=== PATIENT | female | born 1975 | race Caucasian/White ===

== ENCOUNTER → 2018-02-21 14:28 | Outpatient (CLI) | payer OTHER, SELFPAY ==
[2018-02-23 19:22] LABS: Thyroid Peroxidase Antibodies 24 IU/mL (0-34)
[2018-02-25 17:28] LABS: Thyroid Stimulating Immunoglob <0.10 IU/L (0.00-0.55)
== END ==
PROVIDERS: Visit Provider Otolaryngology
DX: E05.90 Thyrotoxicosis, unspecified without thyrotoxic crisis or storm (principal)
CPT/HCPCS: 36415; 83520; 86376

== ENCOUNTER → 2018-03-07 08:46 | Outpatient (CLI) | payer OTHER, SELFPAY ==
[2018-03-07 13:51] LABS: Free T4 (Free Thyroxine) 1.24 ng/dl (0.76-1.46); Thyroid Stimulating Hormone 0.01 uIU/ml (0.358-3.740)
[2018-03-09 13:33] LABS: Triiodothyronine (T3) Free 3.5 pg/mL (2.0-4.4)
== END ==
PROVIDERS: Visit Provider Otolaryngology
DX: E05.90 Thyrotoxicosis, unspecified without thyrotoxic crisis or storm (principal)
CPT/HCPCS: 36415; 84439; 84443; 84481

== ENCOUNTER → 2018-04-04 07:31 | Outpatient (CLI) | payer OTHER, SELFPAY ==
[2018-04-04 08:03] LABS: Basophils # 0.1 K/mm3 (0-0.2); Basophils % 0.8 % (0.1-2.0); Eosinophils # 0.2 K/mm3 (0.0-0.4); Eosinophils % 2.5 % (0.1-12.0); Hematocrit 41.4 % (37.0-47.0); Hemoglobin 13.3 g/dL (12.2-16.2); Lymphocytes # 1.9 K/mm3 (0.7-4.5); Lymphocytes % 25.5 K/mm3 (10-50); Mean Corpuscular HGB Conc 32.2 g/dL (31.8-35.4); Mean Corpuscular Hemoglobin 27.8 pg (27.0-31.2); Mean Corpuscular Volume 86.2 fl (81-99); Mean Platelet Volume 7.2 fl (7.4-10.4); Monocytes # 0.5 K/mm3 (0.1-1.0); Monocytes % 6.7 % (1.7-9.3); Neutrophils # 4.7 K/mm3 (1.8-7.8); Neutrophils % 64.4 % (37.0-80.0); Platelet Count 303 K/mm3 (142-424); Red Cell Distribution Width 14.7 % (11.5-17.5); White Blood Count 7.2 K/mm3 (4.8-10.8)
== END ==
PROVIDERS: PCP Physician Assistant; Visit Provider Otolaryngology
DX: Z01.818 Encounter for other preprocedural examination (principal); E07.9 Disorder of thyroid, unspecified; E05.00 Thyrotoxicosis with diffuse goiter without thyrotoxic crisis or storm
CPT/HCPCS: 36415; 85025; 93005

== ENCOUNTER → 2018-05-09 07:47 | Outpatient (CLI) | payer OTHER, SELFPAY ==
[2018-05-09 13:53] LABS: Free T4 (Free Thyroxine) 0.68 ng/dl (0.76-1.46); Thyroid Stimulating Hormone 19.05 uIU/ml (0.358-3.740)
== END ==
PROVIDERS: Visit Provider Otolaryngology
DX: E89.0 Postprocedural hypothyroidism (principal)
CPT/HCPCS: 36415; 84439; 84443

== ENCOUNTER → 2018-06-06 07:47 | Outpatient (CLI) | payer OTHER, SELFPAY ==
[2018-06-06 13:55] LABS: Calcium 8.7 mg/dL (8.5-10.1); Free T4 (Free Thyroxine) 0.82 ng/dl (0.76-1.46); Thyroid Stimulating Hormone 12.25 uIU/ml (0.358-3.740)
== END ==
PROVIDERS: PCP Physician Assistant; Visit Provider Otolaryngology
DX: E03.9 Hypothyroidism, unspecified (principal); Z98.890 Other specified postprocedural states
CPT/HCPCS: 36415; 82310; 84439; 84443

== ENCOUNTER → 2018-06-27 07:57 | Outpatient (CLI) | payer OTHER, SELFPAY ==
[2018-06-27 14:07] LABS: Free T4 (Free Thyroxine) 1.01 ng/dl (0.76-1.46)
== END ==
PROVIDERS: PCP Physician Assistant; Visit Provider Otolaryngology
DX: D49.7 Neoplasm of unspecified behavior of endocrine glands and other parts of nervous system (principal); E03.9 Hypothyroidism, unspecified
CPT/HCPCS: 36415; 84439; 84443

== ENCOUNTER → 2019-03-08 08:20 | Outpatient (CLI) | payer OTHER, SELFPAY ==
[2019-03-08 14:53] LABS: Free T4 (Free Thyroxine) 1.15 ng/dl (0.76-1.46); Thyroid Stimulating Hormone 2.63 uIU/ml (0.358-3.740)
== END ==
PROVIDERS: PCP Physician Assistant; Visit Provider Otolaryngology
DX: Z09 Encounter for follow-up examination after completed treatment for conditions other than malignant neoplasm (principal)
CPT/HCPCS: 36415; 84439; 84443

== ENCOUNTER → 2019-09-04 07:59 | Outpatient (CLI) | payer OTHER, SELFPAY ==
[2019-09-04 13:46] LABS: Free T4 (Free Thyroxine) 1.26 ng/dl (0.76-1.46); Thyroid Stimulating Hormone 2.04 uIU/ml (0.358-3.740)
== END ==
PROVIDERS: PCP Physician Assistant; Visit Provider Otolaryngology
DX: E03.9 Hypothyroidism, unspecified (principal); D49.7 Neoplasm of unspecified behavior of endocrine glands and other parts of nervous system
CPT/HCPCS: 36415; 84439; 84443

== ENCOUNTER → 2020-03-03 12:17 | Outpatient (CLI) | payer OTHER, SELFPAY ==
--- NOTE | 2020-03-03 12:34 | US_ITS ---
PROCEDURE: US THYROID CLINICAL INDICATION: hx of thyroidectomy, right lobe 2 years ago COMPARISON: No exams were available for comparison FINDINGS: Right lobe: Surgically absent Left lobe: Borderline enlarged but showing normal homogeneous echogenicity with no cystic or solid nodules noted. Isthmus: Unremarkable Additional findings: IMPRESSION: Post right thyroid lobectomy, grossly normal appearing left lobe and isthmus Dictated by: Dr. Edward Rico MD 03/03/2020 13:[address] Edward Rico MD in [place] 03/03/2020 13:53
[2020-03-03 13:43] LABS: Free T4 (Free Thyroxine) 1.33 ng/dl (0.78-2.19)
[2020-03-03 13:58] LABS: Thyroid Stimulating Hormone 3.52 uIU/mL (0.465-4.68)
== END ==
PROVIDERS: PCP Physician Assistant; Visit Provider Otolaryngology
DX: D49.7 Neoplasm of unspecified behavior of endocrine glands and other parts of nervous system (principal); E03.9 Hypothyroidism, unspecified
CPT/HCPCS: 36415; 76536; 84439; 84443

== ENCOUNTER → 2020-12-21 13:58 | Outpatient (CLI) | payer OTHER, SELFPAY | PROVIDERS: PCP Physician Assistant; Visit Provider Nurse Practitioner Family | DX: Z20.822 Contact with and (suspected) exposure to COVID-19 (principal) | CPT/HCPCS: U0003 ==

== ENCOUNTER 2021-01-27 13:01 | Observation (INO) | payer OTHER, SELFPAY ==
[2021-01-27] VITALS (11 sets, daily range): BP systolic 85–136; BP diastolic 52–88; PULSE 55–185; RESP 16–22; TEMP 36.6; O2SAT 96–100; BMI 35.5; BMI 35.2
--- NOTE | 2021-01-27 12:55 | ECG_ITS ---
APPROVED REPORT Exam: Resting ECG HR:201 bpm ECG Measurements Heart Rate 201 AXES AK 120 P QRSd 66 QRS 50 QT 224 T -14 QTc [address] & T wave abnormality, consider inferior ischemia versus rate affect Abnormal ECG Electronically signed by : Igor Man, 01/27/2021 16:55:41
--- NOTE | 2021-01-27 13:06 | ECG_ITS ---
APPROVED REPORT Exam: Resting ECG HR:97 bpm ECG Measurements Heart Rate 97 AXES AR 126 P 53 QRSd 74 QRS 32 QT 340 T 34 QTc 431 Conclusion Normal sinus rhythm Normal ECG Electronically signed by : Igor Man, 01/27/2021 16:55:24
--- NOTE | 2021-01-27 13:08 | XR_ITS ---
PROCEDURE: XR CHEST PORTABLE CLINICAL HISTORY: svt COMPARISON: No exams were available for comparison FINDINGS: The cardiomediastinal silhouette and pulmonary vascularity are within normal limits. There is an overlying monitor device in the midthoracic region obscuring fine detail of the mid mediastinal area and elroy. The lungs are clear. No acute bony abnormalities. IMPRESSION: No acute findings. Dictated by: Pito Goddard MD 01/27/2021 13:32 Pito Goddard MD in [place] 01/27/2021 13:32
--- NOTE | 2021-01-27 13:14 | HMH.EDGENADL ---
ED Disposition Clinical Impression: Supraventricular tachycardia, Elevated troponin, Left upper limb pain Disposition: Admitted as Observation Condition on Discharge: Good Additional Instructions: See Dr. Foster in her office on 02/08/2021 at 2 PM. Return to the emergency department if symptoms return. Referrals: Cass Ely [Primary Care Provider] - - Critical Care Critical Care Time: No Attestation: On 01/27/21, the high probability of a clinically significant, sudden or life threatening deterioration of the following system(s) required my full and direct attention, intervention and personal management. The time I documented below is in addition to time spent performing reported procedures but includes the following listed in this critical care notation. Medical Decision Making - Pranay Inquiry Pt receiving controlled substance: No Vital Signs: 01/27/21 13:02 01/27/21 14:00 01/27/21 14:20 Temperature 98 F Temperature Source Oral Pulse Rate 95 H 55 L Pulse Rate [Radial] 185 H Respiratory Rate 22 18 16 Blood Pressure 126/83 134/59 L Blood Pressure [Right Arm] 85/54 L Blood Pressure Mean 94 72 Blood Pressure Mean [Right Arm] 64 Blood Pressure Position [Right Arm] Sitting 02 Sat by Pulse Oximetry 98 96 100 01/27/21 14:50 01/27/21 15:20 01/27/21 16:01 Temperature Temperature Source Pulse Rate 57 L 70 88 Pulse Rate [Radial] Respiratory Rate 16 16 18 Blood Pressure 120/52 L 107/60 L 118/88 Blood Pressure [Right Arm] Blood Pressure Mean 92 70 96 Blood Pressure Mean [Right Arm] Blood Pressure Position [Right Arm] 02 Sat by Pulse Oximetry 97 100 01/27/21 16:30 01/27/21 18:00 Temperature Temperature Source Pulse Rate 94 H 100 H Pulse Rate [Radial] Respiratory Rate 16 18 Blood Pressure 133/70 136/88 Blood Pressure [Right Arm] Blood Pressure Mean 106 103 Blood Pressure Mean [Right Arm] Blood Pressure Position [Right Arm] 02 Sat by Pulse Oximetry 100 98 - Lab Data Lab Results 01/27/21 14:00: WBC 8.9, RBC 4.55, Hgb 13.3, Hct 40.9, MCV 89.9, MCH 29.2, MCHC 32.5, RDW 13.9, Plt Count 312, MPV 7.5, Neut % (Auto) 70.5, Lymph % (Auto) 22.2, [place] % (Auto) 5.4, Eos % (Auto) 1.0, Baso % (Auto) 0.8, Neut # (Auto) 6.3, Lymph # (Auto) 2.0, [place] # (Auto) 0.5, Eos # (Auto) 0.1, Baso # (Auto) 0.1 01/27/21 14:00: Sodium 136, Potassium 4.0, Chloride 111 H, Carbon Dioxide 19 L, Anion Gap 10.0, BUN 14, Creatinine 0.70, Estimated Creat Clear 162, Estimated GFR 91, Est GFR ( Amer) 110, Glucose 92, Calcium 8.7, Magnesium 1.8, Troponin I 0.01 01/27/21 14:00: TSH 3.22, Free T4 Index 3.4 L, Thyroxine (T4) 10.6, T3 Uptake 32 01/27/21 17:14: Troponin I 0.16 H Result diagrams: 01/27/21 14:00 01/27/21 14:00 Orders (Tests/Meds): ED MEDICATIONS Generic Name Dose Route Start Last Admin Trade Name Freq PRN Reason Stop Dose Admin Metoprolol Tartrate 50 mg 01/27/21 21:00 Metoprolol Tartrate 50mg Tablet PO 02/26/21 20:59 BID NOAH Discontinued Medications Generic Name Dose Route Start Last Admin Trade Name Freq PRN Reason Stop Dose Admin Adenosine 6 mg 01/27/21 13:17 01/27/21 13:17 Adenosine 6mg/2ml Vial IV 01/27/21 13:18 6 mg ONCE ONE Administration Aspirin 324 mg 01/27/21 18:13 01/27/21 18:14 Aspirin 81mg Chewable Tablet PO 01/27/21 18:14 324 mg ONCE ONE Administration Clopidogrel Bisulfate 300 mg 01/27/21 18:23 Clopidogrel 300mg Tablet PO 01/27/21 18:24 ONCE ONE ORDERS Category Date Time Status Troponin I Q3H Lab 01/27/21 14:00 Ordered - Radiology Data #1 Image(s): Chest Image Reviewed: Yes I have reviewed radiologist's interpretation PROCEDURE: XR CHEST PORTABLE CLINICAL HISTORY: svt COMPARISON: No exams were available for comparison FINDINGS: The cardiomediastinal silhouette and pulmonary vascularity are within normal limits. There is an overlying monitor
--- NOTE | 2021-01-27 13:23 | PC.NURSE ---
Rad at bedside
[2021-01-27 14:22] LABS: Chloride 111 mmol/L (98-107)
[2021-01-27 14:23] LABS: Sodium 136 mmol/L (136-145)
[2021-01-27 14:25] LABS: Blood Urea Nitrogen 14 mg/dl (7-17); Creatinine Clearance Estimated 162 mL/min (50-200); Estimated Glomerular Filt Rate 91 ml/min (>60); GFR (African American) 110 ML/MIN (>60)
[2021-01-27 14:26] LABS: Basophils # 0.1 K/mm3 (0-0.2); Basophils % 0.8 % (0.1-2.0); Calcium 8.7 mg/dl (8.4-10.2); Carbon Dioxide 19 mmol/L (22.0-30.0); Eosinophils # 0.1 K/mm3 (0.0-0.4); Glucose 92 mg/dl (74-100); Hematocrit 40.9 % (37.0-47.0); Hemoglobin 13.3 g/dL (12.2-16.2); Lymphocytes % 22.2 % (10-50); Magnesium 1.8 mg/dl (1.6-2.3); Mean Corpuscular HGB Conc 32.5 g/dL (31.8-35.4); Mean Corpuscular Hemoglobin 29.2 pg (27.0-31.2); Mean Corpuscular Volume 89.9 fl (81-99); Mean Platelet Volume 7.5 fl (7.4-10.4); Monocytes # 0.5 K/mm3 (0.1-1.0); Monocytes % 5.4 % (1.7-9.3); Neutrophils # 6.3 K/mm3 (1.8-7.8); Neutrophils % 70.5 % (37.0-80.0); Platelet Count 312 K/mm3 (142-424); Red Blood Count 4.55 M/mm3 (4.20-5.40); Red Cell Distribution Width 13.9 % (11.5-17.5); White Blood Count 8.9 K/mm3 (4.8-10.8)
[2021-01-27 14:40] LABS: Troponin I 0.01 ng/ml (0.00-0.034)
[2021-01-27 14:44] LABS: Free Thyroxine Index 3.4 ug/dL (5.93-13.13); T4 (Thyroxine) 10.6 ug/dl (5.53-11.0); Triiodothryronine (T3) Uptake 32 % (23.5-40.5)
[2021-01-27 14:58] LABS: Thyroid Stimulating Hormone 3.22 uIU/mL (0.465-4.68)
--- NOTE | 2021-01-27 15:59 | PC.NURSE ---
Dr. Lea paged.
--- NOTE | 2021-01-27 16:33 | PC.NURSE ---
Dr franz speaking with Dr Leonora yarbrough ruby rails developer.
[2021-01-27 17:42] LABS: Troponin I 0.16 ng/ml (0.00-0.034)
--- NOTE | 2021-01-27 17:57 | PC.NURSE ---
Dr Lamb paged
--- NOTE | 2021-01-27 18:16 | PC.NURSE ---
Dr Lamb paged again.
[2021-01-27 18:40] LABS: Adenovirus,PCR Not Detected (NotDetected); Bordetella Pertussis Not Detected (NotDetected); Chlamydophila Pneumoniae, PCR Not Detected (NotDetected); Coronavirus 19, PCR Not Detected (NotDetected); Coronavirus 229E Not Detected (NotDetected); Coronavirus NL63 Not Detected (NotDetected); Coronavirus OC43 Not Detected (NotDetected); Coronovirus HKU1,PCR Not Detected (NotDetected); Human Metapneumovirus Not Detected (NotDetected); Influenza A, PCR Not Detected (NotDetected); Influenza AH1, 2009 Not Detected (NotDetected); Influenza AH1, PCR Not Detected (NotDetected); Influenza AH3,PCR Not Detected (NotDetected); Influenza B, PCR Not Detected (NotDetected); Mycoplasma Pneumoniae, PCR Not Detected (NotDetected); Parainfluenza 1, PCR Not Detected (NotDetected); Parainfluenza 2, PCR Not Detected (NotDetected); Parainfluenza 3, PCR Not Detected (NotDetected); Parainfluenza 4, PCR Not Detected (NotDetected); Respiratory Syncytial Virus Not Detected (NotDetected); Rhinovirus/Enterovirus Not Detected (NotDetected)
[2021-01-27 20:03] LABS: Troponin I 0.15 ng/ml (0.00-0.034)
--- NOTE | 2021-01-27 20:41 | PC.NURSE ---
PT ARRIVED TO [facility] VIA W/C GILBERT PERKINS W/STAFF AT 2041
[2021-01-28] VITALS (18 sets, daily range): BP systolic 82–161; BP diastolic 52–72; PULSE 59–81; RESP 16–20; TEMP 36.6–36.8; O2SAT 93–98; BMI 35.4
--- NOTE | 2021-01-28 | IR_ITS ---
APPROVED REPORT Patient Location: Inpatient Bus Inspector: CALLIE Schmitz RT (R) PROCEDURES Left heart catheterization Left ventriculogram Selective coronary angiogram INDICATION Non-ST elevation myocardial infarction, Risk factors for coronary disease, Supraventricular tachycardia SCAI INDICATION 45-year-old diabetic patient presenting to the emergency department with supraventricular tachycardia accompanied by chest pain. Patient received adenosine and converted to sinus rhythm. Despite the conversion to sinus rhythm patient had persistent intermittent waxing and waning left arm pain which was suspicious for angina pectoris. Patient had a significant ten fold increase in troponin from baseline at 2 hours therefore she was admitted for ongoing monitoring. Given patient's troponin elevation in the setting of an SVT along with her risk factors it was decided we should proceed with angiography. Informed consent was obtained prior to the procedure. COMPLICATIONS None Estimated Blood Loss: less than 10 ml TECHNIQUE One percent lidocaine used to anesthetize the right anterior aspect of the wrist. The right radial artery was accessed via the Seldinger technique. A 6 Armenian sheath was placed in the right radial artery. 2.5 mg of verapamil, 800 mcg of nitroglycerin, 1mg Lidocaine and 5000 U Heparin were given through the arterial sheath. The Poppa catheter was also used to perform left heart catheterization, left ventriculogram and selective coronary angiogram. At the end of the procedure the sheath was removed good hemostasis was achieved using Traclet band, patient was transferred to the postop holding area in stable condition. ANGIOGRAPHIC RESULTS The left main artery Normal The left anterior descending artery Normal with slow ARELY II flow down the higher vessel consistent with endothelial dysfunction The circumflex artery Nondominant normal The right coronary artery Large dominant normal The LIZ ventriculogram reveals Slightly hyperdynamic at 70% The left ventricular end-diastolic pressure Mildly elevated 20 mmHg IMPRESSION Angiographically normal coronary arteries accompanied by ARELY II flow down the LAD consistent with significant endothelial dysfunction Hyperdynamic ventricle consistent with diastolic dysfunction Mildly elevated LVEDP also consistent with diastolic dysfunction PLAN 1. Medical management for SVT 2. Patient should be referred to electrophysiology for EP study with planned radiofrequency ablation given her type II myocardial infarction during SVT 3. Continue beta-blockers for SVT Electronically signed by : Pj Lamb, 01/28/2021 11:40:28
[2021-01-28 00:01] LABS: POC Glucose,Bedside 85 (70-110)
--- NOTE | 2021-01-28 02:57 | PC.NURSE ---
Pt A&O x4 and has slept well this shift. Pt independent with ambulation in room. NSR on tele. Lungs CTA, on room air. Bowels soudns x4, abd soft and nontender. IV patent, SL. VSS, call light in reach, no concerns at this time.
--- NOTE | 2021-01-28 06:33 | PC.NURSE ---
Girish AGUIRRE NOTIFIED OF CONSULT
--- NOTE | 2021-01-28 07:59 | P.CONPHA_ITS ---
[facility] Pharmacy VTE Monitoring - Patient Demographics Admission date: 01/27/21 Report Date: 01/28/21 Time: 07:59 Allergies/Adverse Reactions: Patient Allergies Opioids - Morphine Analogues Allergy (Intermediate, Verified 12/21/20 13:02) Penicillins Allergy (Intermediate, Verified 12/21/20 13:02) Height: 1.68 m Weight: 99.819 kg Patient Problems: Current Active Problems Supraventricular tachycardia (Acute) Elevated troponin (Acute) Left upper limb pain (Acute) - VTE Risk Labs: VTE Related Lab Results Hgb 13.3 g/dL (12.2-16.2) 01/27/21 14:00 Hct 40.9 % (37.0-47.0) 01/27/21 14:00 Plt Count 312 K/mm3 (142-424) 01/27/21 14:00 BUN 14 mg/dl (7-17) 01/27/21 14:00 Creatinine 0.70 mg/dl (0.52-1.04) 01/27/21 14:00 Estimated Creat Clear 162 mL/min (50-200) 01/27/21 14:00 VTE Score: 2 VTE Risk Level: Very Low Risk - Prophylaxis VTE Prophylaxis Ordered?: Yes Types of VTE Prophylaxis: TEDS Knee High Location of Applied Device: Bilateral Lower Extremeties
--- NOTE | 2021-01-28 08:00 | HMH.HP ---
*Admission Date: 01/27/21 *Chief complaint: Tachycardia/presyncope *History of present illness: 45-year-old white female with hypertension, moderate obesity but with negative heart history in the past who was at her workplace yesterday when she felt a feeling of presyncope for an hour or 2. Presented to the emergency department where she was found to be in SVT which she noticed when she laid back in the ER bed. She was treated with adenosine which broke the SVT back to sinus rhythm. Work-up revealed negative chest x-ray, labs were unremarkable until her second troponin was very minimally elevated. She was admitted to hospital overnight for serial troponins and further evaluation. This morning she feels great, and has had no further issues with tachycardia, presyncope or palpitations. She notes that 4 days ago she had a fall after she had been doing a lot of mulch at her home and had some left shoulder pain, this has not resolved or changed with her heart rate or the resolution of the SVT is noted. [facility] History I have reviewed the patient's past medical history: Yes Medical History: Reports:: Depression, Hyperlipidemia, Hypertension, Migraine Denies:: Diabetes Mellitus Type 1, Diabetes Mellitus Type 2 *Have you ever received a pneumonia vaccine?: No *Have you received a flu vaccine this season?: Yes Other Medical History: Reports: Hypothyroidism, Thyroid Disease, Other Laterality Cases: Bilateral: Other Other Surgeries: Yes: No Previous Surgery, (x3), Thyroidectomy - *Social History Last grade of school completed: Some college Smoking Status: Never smoker Alcohol Intake: current Alcohol Intake Frequency:: holidays/special occasions only Substance Use Type: denies use *Occupational Status:: employed Housing: house Household Members: family *Travel in the last 8 weeks: None - Psychiatric History Pschychiatric History:: Reports:: Depression Family Hx:: Cancer, Hypertension Review of Systems - Review of Systems Review of systems:: pertinent systems reviewed and negative unless documented below - *Neurologic Denies fainting Meds Home Medications Medication Instructions Recorded Confirmed Type diclofenac potassium 50 mg tablet 50 mg PO DAILY 30 Days #60 02/21/01/27/21 History metformin 500 mg tablet,extended 500 mg PO DAILY #23 tab 09/06/19 01/27/21 History release 24 hr olmesartan 20 mg tablet 20 mg PO DAILY #30 tab 09/06/19 01/27/21 History sertraline 100 mg tablet 100 mg PO DAILY #30 tab 09/06/19 01/27/21 History Levothyroxine Sodium [Tirosint] 100 mcg PO DAILY 01/27/21 01/27/21 History Allergies Allergy/AdvReac Type Severity Reaction Status Date / Time Opioids - Morphine Analogues Allergy Intermediate Verified 12/21/20 13:02 Penicillins Allergy Intermediate Verified 12/21/20 13:02 Exam Vital signs and Labs for Last 24 Hours: Temp Pulse Resp BP Pulse Ox 98 F 65 20 111/64 97 01/28/21 04:00 01/28/21 04:00 01/28/21 04:00 01/28/21 04:00 01/28/21 04:00 Laboratory Results - last 24 hr 01/27/21 14:00: WBC 8.9, RBC 4.55, Hgb 13.3, Hct 40.9, MCV 89.9, MCH 29.2, MCHC 32.5, RDW 13.9, Plt Count 312, MPV 7.5, Neut % (Auto) 70.5, Lymph % (Auto) 22.2, [place] % (Auto) 5.4, Eos % (Auto) 1.0, Baso % (Auto) 0.8, Neut # (Auto) 6.3, Lymph # (Auto) 2.0, [place] # (Auto) 0.5, Eos # (Auto) 0.1, Baso # (Auto) 0.1 01/27/21 14:00: Sodium 136, Potassium 4.0, Chloride 111 H, Carbon Dioxide 19 L, Anion Gap 10.0, BUN 14, Creatinine 0.70, Estimated Creat Clear 162, Estimated GFR 91, Est GFR ( Amer) 110, Glucose 92, Calcium 8.7, Magnesium 1.8, Troponin I 0.01 01/27/21 14:00: TSH 3.22, Free T4 Index 3.4 L, Thyroxine (T4) 10.6, T3 Uptake 32 01/27/21 17:14: Troponin I 0.16 H 01/27/21 18:34: Chlamy pneumoniae PCR Not detected, Adenovirus (PCR) Not detected, B. pertussis DNA (PCR) Not detected, Coronavirus OC43 (PCR) Not detected, Coronavirus HKU1 (PCR) Not detected, Coronavirus 229E (PCR) Not detected, SARS-CoV-2 (P
--- NOTE | 2021-01-28 09:01 | HMH.PHAINT ---
home medicaiton list clarified using list from home pharmacy and pt interview
--- NOTE | 2021-01-28 10:00 | HMH.CNCARD ---
History of Present Illness Consult date: 01/28/21 Requesting physician: Igor Man Consult reason: chest pain Chief complaint: Chest pain, SVT Additional Medical History:: 1. Hypertension 2. Partial thyroidectomy secondary to Graves' disease 3. Family history of coronary disease in her father 4. Hyperlipidemia, on statin therapy 5. Polycystic ovarian syndrome, on Metformin 6. Obesity History of present illness: 45-year-old white female with hypertension, moderate obesity but with negative heart history in the past who was at her workplace yesterday when she felt a feeling of presyncope for an hour or 2. Presented to the emergency department where she was found to be in SVT which she noticed when she laid back in the ER bed. She was treated with adenosine which broke the SVT back to sinus rhythm. Work-up revealed negative chest x-ray, labs were unremarkable until her second troponin was very minimally elevated. She was admitted to hospital overnight for serial troponins and further evaluation. This morning she feels great, and has had no further issues with tachycardia, presyncope or palpitations. She notes that 4 days ago she had a fall after she had been doing a lot of mulch at her home and had some left shoulder pain, this has not resolved or changed with her heart rate or the resolution of the SVT is noted. The above per Dr. Man Events as noted above confirmed with the patient. No prior episodes of presyncope. She reports having a stress test by Dr. Foster in June of last year walking 9 minutes on a treadmill with reportedly no concerning changes. Patient denies any exertional chest pain, pressure or tightness but admits that she is not very active. Troponins, normal x3 overnight. EKG is sinus rhythm no acute ST segment changes. [facility] History Medical History: Reports:: Depression, Hyperlipidemia, Hypertension, Migraine Denies:: Diabetes Mellitus Type 1, Diabetes Mellitus Type 2 *Have you ever received a pneumonia vaccine?: No *Have you received a flu vaccine this season?: Yes Other Medical History: Reports: Hypothyroidism, Thyroid Disease, Other Laterality Cases: Bilateral: Other Other Surgeries: Yes: No Previous Surgery, (x3), Thyroidectomy - *Social History Last grade of school completed: Some college Smoking Status: Never smoker Alcohol Intake: current Alcohol Intake Frequency:: holidays/special occasions only Substance Use Type: denies use *Occupational Status:: employed Housing: house Household Members: family *Travel in the last 8 weeks: None - Psychiatric History Pschychiatric History:: Reports:: Depression Family Hx:: Cancer, Hypertension Meds Home Medications Medication Instructions Recorded Confirmed Type metformin 500 mg tablet,extended 500 mg PO DAILY #23 tab 09/06/19 01/27/21 History release 24 hr olmesartan 20 mg tablet 20 mg PO DAILY #30 tab 09/06/19 01/27/21 History sertraline 100 mg tablet 100 mg PO HS #30 tab 09/06/19 01/28/21 History Levothyroxine Sodium [Tirosint] 100 mcg PO DAILY 01/27/21 01/27/21 History Diclofenac Sodium [Diclofenac 75mg 75 mg PO BID 01/28/21 01/28/21 History Tab] Allergies Allergy/AdvReac Type Severity Reaction Status Date / Time Opioids - Morphine Analogues Allergy Intermediate Verified 12/21/20 13:02 Penicillins Allergy Intermediate Verified 12/21/20 13:02 Exam Vital signs and Labs for Last 24 Hours: Temp Pulse Resp BP Pulse Ox 98.1 F 81 19 161/72 H 97 01/28/21 08:00 01/28/21 08:00 01/28/21 08:00 01/28/21 08:00 01/28/21 08:00 Laboratory Results - last 24 hr 01/27/21 14:00: WBC 8.9, RBC 4.55, Hgb 13.3, Hct 40.9, MCV 89.9, MCH 29.2, MCHC 32.5, RDW 13.9, Plt Count 312, MPV 7.5, Neut % (Auto) 70.5, Lymph % (Auto) 22.2, [place] % (Auto) 5.4, Eos % (Auto) 1.0, Baso % (Auto) 0.8, Neut # (Auto) 6.3, Lymph # (Auto) 2.0, [place] # (Auto) 0.5, Eos # (Auto) 0.1, Baso # (Auto) 0.1 01/27/21 14:00: Sodium 136, Pota
--- NOTE | 2021-01-28 10:08 | CA_ITS ---
APPROVED REPORT EXAM: Comprehensive 2D, Doppler, and color-flow Echocardiogram Physics Technical Officer: Aida Eastman RT(R) Ht: 5 ft 6 in Wt: 220lbs BSA: 2.08 HR: 70 bpm BP: 114/70 mmHg Indications: Palpitations, Atypical CP, SVT, elevated troponin, Family hx-ASCVD 2D Dimensions IVSd 0.91 cm LVEF (Visual) 57.20 % PWd 0.90 cm LA Volume 40.90 mL LVDd 4.70 cm LA Volume Index 19.727323 mL/m2 (M/F) 16-34 LVDs 3.29 cm Aortic Root 2.92 cm Left Atrium 3.78 cm LVOT 1.99 cm (M/F) 1.5-2.5 M-Mode Dimensions RVDd 1.29 cm (0.9-2.6) LA Diam 3.34 cm (1.9-4.0) LVDd 4.58 cm (3.5-5.7) Ao Diam 3.21 cm (2.0-3.7) LVDs 3.17 cm (3.5-5.7) IVSd 0.94 cm (0.6-1.1) PWd 1.16 cm (0.6-1.1) EF (Teich) 58.50% EPSs 0.39 cm FS 30.80% EDV (Teich) 96.30 mL TAPSE 2.30 (<1.7) ESV (Teich) 40.00 mL LV Diastology E Decel Time 157.00 (160-240 msec) E/A Ratio 1.12 MED E' 13.80 (< 7 cm/sec) MED A' 12.10 cm/s E'/MED E' Ratio 5.04 (>14) LAT E' 10.50 (<10 cm/sec) LAT A' 6.10 cm/s E/LAT E' Ratio 6.62 (>14) Aortic Valve LVOT Max 97.00 (70-110 cm/s) LVOT VTI 21.97 cm AoV Peak Darci. 135.00 (50-130 cm/s) AO Peak GR. 7.30 mmHg AO Mean GR. 4.80 (<5 mmHg) AO VTI 30.99 (18-25 cm) CHRISTI (VTI) 2.20 (2.5-4.5 cm2) Mitral Valve MV E Max Darci. 69.00 (40-130 cm/s) MV A Velocity 62.00 (40-130 cm/s) E/A Ratio 1.12 MV Decel. Time 157.00 (160-240 ms) MV PHT 46.00 ms Pulmonary Valve PV Peak Velocity 65.00 (50-150 cm/s) Tricuspid Valve TR P. Velocity 239.00 cm/s RAP Estimate 10.00 mmHg RVSP 32.90 mmHg Left Ventricle Left atrium is normal size, left ventricle is normal size, there is no concentric left ventricular hypertrophy, visually estimated ejection fraction 55% with no regional wall motion abnormality, diastolic parameters are within normal range. Right Ventricle Right atrium and right ventricle are normal size and contractility. Aortic Valve Aortic valve is grossly normal, there is no aortic stenosis or aortic insufficiency. Mitral Valve Mitral valve grossly normal, there is trace mitral regurgitation. Tricuspid Valve Tricuspid valve is grossly normal, there is trace tricuspid regurgitation. Tricuspid regurgitation jet velocity is inadequate for calculation of the right ventricular systolic pressure. Pulmonic Valve Pulmonic valve is poorly visualized. Great Vessels Aortic root is normal size. Pericardium No significant pericardial effusion noted. Conclusion 1. Normal left ventricular size, preserved left ventricular systolic function, visually estimated ejection fraction 55% with no regional wall motion abnormality, diastolic parameters are within normal range. 2. Trace mitral and tricuspid regurgitation. 3. No significant pericardial effusion noted. Electronically signed by : Sheldon Edwards, 01/28/2021 17:08:03
[2021-01-28 10:41] LABS: HCG Qualitative, Serum Negative (Negative)
--- NOTE | 2021-01-28 11:00 | PC.NURSE ---
down for heart cath now
--- NOTE | 2021-01-28 12:28 | PC.NURSE ---
patient returned from heart cath in stable condition.
--- NOTE | 2021-01-28 14:51 | HMH.DCSUM ---
General - General Admission date:: 01/27/21 Discharge date: 01/28/21 HPI HPI: 45-year-old white female with hypertension, moderate obesity but with negative heart history in the past who was at her workplace yesterday when she felt a feeling of presyncope for an hour or 2. Presented to the emergency department where she was found to be in SVT which she noticed when she laid back in the ER bed. She was treated with adenosine which broke the SVT back to sinus rhythm. Work-up revealed negative chest x-ray, labs were unremarkable until her second troponin was very minimally elevated. She was admitted to hospital overnight for serial troponins and further evaluation. This morning she feels great, and has had no further issues with tachycardia, presyncope or palpitations. She notes that 4 days ago she had a fall after she had been doing a lot of mulch at her home and had some left shoulder pain, this has not resolved or changed with her heart rate or the resolution of the SVT is noted. Hospital Course Hospital Course: Patient admitted, started on metoprolol and cardiology was consulted with recommendation for LHC. Patient was taken for LHC which showed normal coronaries, hyperdynamic function and endothelial dysfunction of LAD. Recommendation for EP referral for ablation of SVT due to type II NSTEMI. She has tolerated metoprolol well. No further episodes of SVT. Plan to d/c home on metoprolol with short term FU on Monday in our [place] office. Refer to [facility] Objective Vital signs: Temp Pulse Resp BP Pulse Ox 98.1 F 61 16 97/60 L 96 01/28/21 08:00 01/28/21 12:40 01/28/21 12:40 01/28/21 12:40 01/28/21 12:40 Narrative: Alert and oriented x3. RRR, no murmur. No LE edema. LS clear. Abdomen soft and nontender. ENT exam unremarkable. Affect normal. No LAD. No thyromegaly. Results Labs on day of discharge: Labs from last 24 hours 01/27/21 01/27/21 01/27/21 21:07 19:25 18:34 POC Glucose 85 Troponin I 0.15 H TSH Serum HCG, Qual Chlamy pneumoniae PCR Not detected Adenovirus (PCR) Not detected B. pertussis DNA (PCR) Not detected Coronavirus OC43 (PCR) Not detected Coronavirus HKU1 (PCR) Not detected Coronavirus 229E (PCR) Not detected SARS-CoV-2 (PCR) Not detected Coronavirus NL63 (PCR) Not detected Human Metapneumovir PCR Not detected Influenza A (H1) PCR Not detected Influ A (H1N1/09) PCR Not detected Influenza A (H3) PCR Not detected Influenza Type A (PCR) Not detected Influenza Type B (PCR) Not detected M. pneumoniae (PCR) Not detected Parainfluenza 1 (PCR) Not detected Parainfluenza 2 (PCR) Not detected Parainfluenza 3 (PCR) Not detected Parainfluenza 4 (PCR) Not detected RSV (PCR) Not detected Entero/Rhino (PCR) Not detected 01/27/21 01/27/21 01/27/21 17:14 14:00 14:00 POC Glucose Troponin I 0.16 H TSH 3.22 Serum HCG, Qual Negative Chlamy pneumoniae PCR Adenovirus (PCR) B. pertussis DNA (PCR) Coronavirus OC43 (PCR) Coronavirus HKU1 (PCR) Coronavirus 229E (PCR) SARS-CoV-2 (PCR) Coronavirus NL63 (PCR) Human Metapneumovir PCR Influenza A (H1) PCR Influ A (H1N1/09) PCR Influenza A (H3) PCR Influenza Type A (PCR) Influenza Type B (PCR) M. pneumoniae (PCR) Parainfluenza 1 (PCR) Parainfluenza 2 (PCR) Parainfluenza 3 (PCR) Parainfluenza 4 (PCR) RSV (PCR) Entero/Rhino (PCR) DS: Diagnosis - Discharge Diagnosis (1) Elevated troponin Status: Acute (2) Supraventricular tachycardia Status: Acute (3) Hypertension Status: Acute (4) Hyperlipidemia Status: Acute (5) Family history of coronary artery disease in father Status: Acute Discharge Plan - Patient Discharge Instructions ACTIVITY: Continue current activity, Other DIET: cardiac Patient Instructions:
--- NOTE | 2021-01-28 16:25 | PC.NURSE ---
did mention to isatu pace about patient bp being on lower end. stated to change metoprolol to 25mg bid instead of the 50
== END 2021-01-28 18:55 | disposition home or self-care (01) ==
LOC: ER 18:26 → 2ND 22:05
PROVIDERS: Internal Medicine; Admitting Provider Internal Medicine Adolescent Medicine; Emergency Provider Emergency Medicine; PCP Physician Assistant; Visit Provider Internal Medicine Adolescent Medicine
DX: I47.1 Supraventricular tachycardia (principal); I21.A1 Myocardial infarction type 2; Z88.0 Allergy status to penicillin; Z79.899 Other long term (current) drug therapy; Z82.49 Family history of ischemic heart disease and other diseases of the circulatory system; Z20.822 Contact with and (suspected) exposure to COVID-19; G43.909 Migraine, unspecified, not intractable, without status migrainosus; E28.2 Polycystic ovarian syndrome; Z88.5 Allergy status to narcotic agent; I10 Essential (primary) hypertension; E66.9 Obesity, unspecified; Z68.35 Body mass index [BMI] 35.0-35.9, adult; E78.5 Hyperlipidemia, unspecified; Z79.84 Long term (current) use of oral hypoglycemic drugs
CPT/HCPCS: 71045; 80048; 82962; 83735; 84436; 84443; 84479; 84484; 84703; 85025; 87581; 87633; 87798; 93005; 93306; 93458; 96374; 99152; 99284; C1725; C1769; G0378; J1644; Q9967

== ENCOUNTER → 2021-02-11 07:43 | Outpatient (CLI) | payer OTHER, SELFPAY | PROVIDERS: PCP Physician Assistant; Visit Provider Internal Medicine Clinical Cardiac Electrophysiology | DX: Z20.822 Contact with and (suspected) exposure to COVID-19 (principal); I47.1 Supraventricular tachycardia | CPT/HCPCS: U0003 ==

== ENCOUNTER 2021-03-23 07:00 | Outpatient (RCR) | payer OTHER, SELFPAY ==
--- NOTE | 2021-02-17 14:06 | HMH.PTOPEV ---
PT Outpatient Evaluation Rehab PT Outpatient Evaluation Start: 02/17/21 13:04 Freq: Status: Active Protocol: Document 02/17/21 13:04 MARLYN (Rec: 02/17/21 14:04 [email or web address] [id number]) Electronically Signed By Rell Allen, PT 02/17/21 13:04 Outpatient Therapy Subjective History Subjective History Pt. is a 45 year old female who presents to outpatient PT clinic w/ complaints of acute and intermittent/activity dependent LUE posterior shldr. P! of traumatic onset 3 wks. ago. Pt. reports symptoms worsen w/ lying on the L side and lifting objects. Reports having some symptom relief w/ sitting upright. Pt. reports having intermittent LUE forearm symptoms( spasming ) prior to the 3 wk. onset, but states not having that symptom anymore. Pt. reports possibly injuring her shoulder lifting mulch. Pt. reports having a heart cath. that confirmed no blockage nor ischemic changes. Pt. denies having any symptoms on the R. Pt. denies having injections for current pathology, states getting an X -ray tomorrow(02/18/21). Pt. reports being put on a no lifting >10# restriction at this time. Current medications include Levothyroxine, Olmesartan Medoxomil, Metformin, Senteraline, Aspirin, and Diclofenac. PMH includes x 3 and Lobectomy. Current medicational allergies include Morphine and Penicillin. Chief Complaint Pain,Spasms,Paresthesia, Weakness Symptom Type Ache,Sharp,Stabbing,Shooting Symptoms Relieved By Rest/Positioning,Heat,OTC Meds Symptoms Aggravated By Bending/Stooping,Physical Activity,Lifting Prior Functional Limitations None Current Functional Limitations Reaching,Lifting,Housework, Desk Work/Reading,Driv
== END 2021-03-23 08:11 | disposition home or self-care (01) ==
LOC: PT.CARL 07:00
PROVIDERS: PCP Physician Assistant; Visit Provider Internal Medicine Adolescent Medicine
DX: M54.12 Radiculopathy, cervical region (principal)
CPT/HCPCS: 97012; 97014; 97033; 97110; 97140; 97163; G0283

== ENCOUNTER → 2022-02-23 15:15 | Outpatient (CLI) | payer OTHER, SELFPAY ==
--- NOTE | 2022-02-23 15:18 | US_ITS ---
FINAL REPORT TECHNIQUE: Sonographic images of the thyroid were obtained. CLINICAL HISTORY: HYPERTHYROIDISM COMPARISON: 03/03/2020 FINDINGS: THYROID ULTRASOUND The right thyroid gland is surgically absent. Images are miss marked. The left thyroid gland measures 4.4 x 1.2 x 2.0 cm. The parenchyma shows normal echogenicity. No dominant mass is seen. IMPRESSION: 1. Right thyroid gland surgically absent. 2. No dominant mass/nodule seen in the left thyroid lobe. Reviewed, Interpreted and Dictated by Anjel Rodriguez III, MD Transcribed by Yane Johnson Authenticated and [facility]
== END ==
PROVIDERS: PCP Nurse Practitioner Family; Visit Provider Otolaryngology
DX: E05.90 Thyrotoxicosis, unspecified without thyrotoxic crisis or storm (principal)
CPT/HCPCS: 76536

== ENCOUNTER 2023-03-26 12:42 | Observation (INO) | payer OTHER, SELFPAY ==
[2023-03-26] VITALS (14 sets, daily range): BP systolic 86–125; BP diastolic 40–85; PULSE 60–104; RESP 15–21; TEMP 36.5–36.6; O2SAT 93–99; BMI 37.1; BMI 37.7
--- NOTE | 2023-03-26 12:43 | ECG_ITS ---
APPROVED REPORT Exam: Resting ECG HR:100 bpm ECG Measurements Heart Rate 100 AXES NH 134 P 53 QRSd 78 QRS 52 QT 316 T 26 QTc 373 Conclusion SINUS TACHYCARDIA POSSIBLE LEFT ATRIAL ENLARGEMENT [-0.1mV P-WAVE IN V1/V2] ABNORMAL RHYTHM ECG UNCONFIRMED REPORT Electronically signed by : Igor Man MD 03/27/2023 08:16:54
--- NOTE | 2023-03-26 12:53 | HMH.EDCP ---
Discharge Plan Disposition Patient Disposition: Admitted Condition: Fair Chief Complaint: Chest Pain Prescriptions Prescriptions: No Action olmesartan 20 mg tablet 20 mg PO DAILY Qty: 30 Patient Comments: TAKE 1 TABLET 1 TIME EACH DAY sertraline 100 mg tablet 100 mg PO HS Qty: 30 Patient Comments: TAKE 1 TABLET 1 TIME EACH DAY. metformin 500 mg tablet extended release 24 hr 500 mg PO DAILY Qty: 23 Patient Comments: TAKE 1 TABLET 1 TIME EACH DAY. levothyroxine 100 MCG capsule 100 mcg PO DAILY aspirin 81 MG tablet,delayed release (DR/EC) 81 mg PO DAILY Referrals Follow up/Referrals: Hali Dumas APRN [Primary Care Provider] - See instructions Clinical Impressions Clinical Impression: Acute coronary syndrome with high troponin Discharge ED Provider: Vanessa Mcconnell Chest Pain HPI General Chief Complaint: Chest Pain Stated Complaint: CP Time Seen by Provider: 03/26/23 12:47 Mode of Arrival: Ambulatory Source of Information: Patient and Significant Other Limitations: No Limitations History of Present Illness HPI narrative: The patient presents to the emergency department complaining of having felt hot with the discomfort radiating from the neck to the left arm. She denies actual chest pain. She did feel palpitations however. This occurred while she was blow drying her hair. She denies any other complaints. This occurred approximately 1 hour prior to arrival. DONALDO Score for Non-Stemi Age of Patient: 40-49 years old Heart Rate: 90-109 bpm Systolic Blood Pressure: 100-119 mmHg Serum Creatinine: 0.80-1.19 mg/dl CHF [place] Class: I-No CHF Other Risk Factors: Elevated Cardiac Enzymes or Biomarkers Non-Stemi Risk Score: 104 Related Data Home Medications Medication Instructions Recorded Confirmed metformin 500 mg tablet,extended 500 mg PO DAILY Diabetes #23 tabs 09/06/19 03/26/23 release 24 hr olmesartan 20 mg tablet 20 mg PO DAILY High blood pressure 09/06/19 03/26/23 #30 tabs sertraline 100 mg tablet 100 mg PO HS Depression #30 tabs 09/06/19 03/26/23 levothyroxine 100 mcg capsule 100 mcg PO DAILY hypothyroidism 01/27/21 03/26/23 aspirin 81 mg tablet,delayed 81 mg PO DAILY cardiac 03/26/23 03/26/23 release Allergies Allergy/AdvReac Type Severity Reaction Status Date / Time Opioids - Morphine Analogues Allergy Intermediate Verified 12/21/20 13:02 Penicillins Allergy Intermediate Verified 12/21/20 13:02 [facility] Disclaimer: The information contained in this section may have been updated after the patient was seen, as this information can be updated by other users. Medical History (Updated 03/26/23 @ 16:33 by Vinny Spear MD) Diabetes Endothelial dysfunction of coronary artery Family history of coronary artery disease in father Hyperlipidemia Hypertension Social History Smoking Status: Never smoker alcohol intake: current counseling provided: none substance use type: denies use current occupational status: employed Travel in the last 8 weeks: None household members: family housing: house ROS Obtained: Yes All systems reviewed & no additional complaints except as documented Physical Exam General General appearance: alert and in no apparent distress Head Head exam: atraumatic Eye Eye exam: Present normal appearance ENT ENT exam: Present normal exam Neck Neck exam: Present normal inspection, full ROM and other (The patient's symptoms and her left upper extremity can be reproduced with the patient turning her head to the left.); Absent tenderness or meningismus Chest Chest inspection: Present normal inspection and symmetric chest wall rise; Absent tenderness Respiratory Respiratory exam: Present normal lung sounds bilaterally; Absent respiratory distress or accessory muscle use Cardiovascular Cardiovascular exam: Present regular rate, normal rhythm and normal heart sounds Abdominal Exam Abdominal exa
--- NOTE | 2023-03-26 12:56 | XR_ITS ---
PROCEDURE INFORMATION: Exam: XR Chest Exam date and time: 03/26/2023 1:03 PM Age: 47 years old Clinical indication: Pain; Other: Left side of neck into left jaw. Prior surgery; Surgery date: 6+ months; Surgery type: 2 cardiac ablations. ; Additional info: Cp TECHNIQUE: Imaging protocol: Radiologic exam of the chest. Views: 1 view. COMPARISON: CR XR CHEST PORTABLE 01/27/2021 1:23 PM FINDINGS: Lungs: Unremarkable. No consolidation. Pleural spaces: Unremarkable. No pleural effusion. No pneumothorax. Heart/Mediastinum: Unremarkable. No cardiomegaly. Bones/joints: Unremarkable. IMPRESSION: No acute findings.
[2023-03-26 13:04] LABS: Basophils # 0.1 K/mm3 (0-0.2); Basophils % 0.7 % (0.1-2.0); Chloride 108 mmol/L (98-107); Eosinophils # 0.2 K/mm3 (0.0-0.4); Hematocrit 47.2 % (37.0-47.0); Hemoglobin 14.8 g/dL (12.2-16.2); Lymphocytes # 2.6 K/mm3 (0.7-4.5); Lymphocytes % 23.8 % (10-50); Mean Corpuscular HGB Conc 31.4 g/dL (31.8-35.4); Mean Corpuscular Hemoglobin 27.7 pg (27.0-31.2); Mean Corpuscular Volume 88.1 fl (81-99); Mean Platelet Volume 7.7 fl (7.4-10.4); Monocytes # 0.6 K/mm3 (0.1-1.0); Monocytes % 5.8 % (1.7-9.3); Neutrophils # 7.3 K/mm3 (1.8-7.8); Neutrophils % 67.7 % (37.0-80.0); Platelet Count 369 K/mm3 (142-424); Potassium 4.5 mmoL/L (3.5-5.1); Red Blood Count 5.36 M/mm3 (4.20-5.40); Red Cell Distribution Width 14.5 % (11.5-17.5); Sodium 139 mmol/L (136-145); White Blood Count 10.8 K/mm3 (4.8-10.8)
[2023-03-26 13:07] LABS: Anion Gap 13.5 mEq/L (5-15); Blood Urea Nitrogen 13 mg/dl (7-17); Calcium 8.6 mg/dl (8.4-10.2); Carbon Dioxide 22 mmol/L (22.0-30.0); Creatinine Clearance Estimated 129 mL/min (50-200); Estimated Glomerular Filt Rate 67 ml/min (>60); GFR (African American) 82 ML/MIN (>60); Glucose 99 mg/dl (74-100)
[2023-03-26 13:19] LABS: Troponin I 0.05 ng/ml (0.00-0.034)
--- NOTE | 2023-03-26 13:46 | PC.NURSE ---
Marianna FRANKLIN notified me of patient's decreased BP. Went into room to assess patient. Will continue to monitor
[2023-03-26 16:09] LABS: Troponin I 0.12 ng/ml (0.00-0.034)
--- NOTE | 2023-03-26 16:22 | PC.NURSE ---
DR JOVEL SPEAKING WITH DR KAY
--- NOTE | 2023-03-26 16:28 | PC.NURSE ---
DIVYA GARCIA speaking with hospitalist
--- NOTE | 2023-03-26 16:30 | PC.NURSE ---
Prior to Bisoprolol administration, Dr. Enedina GARCIA notified of consistent BP readings. Per Dr. Mcconnell continue with administration per [facility] recommendation.
--- NOTE | 2023-03-26 16:31 | EXP.HP ---
History of Present Illness *Admission Date: 03/26/23 *Reason for visit:: chest pain *History of present illness: is a 47-year-old female who was blow drying her hair earlier today and developed onset of neck pain and chest pain. Pain radiated either to her from her left neck and down her arm and into her chest. Developed sensation of feeling flushed and sweaty. [place] dizzy and weak. Rested at home for about an hour and a half before coming to the ER with no improvement in her symptoms. Denies any shortness of breath, nausea, vomiting, diarrhea. No ian syncope. Initial eval concerning for radiculopathy of the C-spine as pain was reproducible on exam. EKG unremarkable. Troponins however elevated and continued to increase from 0 to 3 hours. Given this finding, cardiology was contacted and recommended admission for medical management at this time. They will see her in the morning. ER consulted medicine for admission. On arrival to the floor, patient denies any further chest pain. Does have some tenderness in her left upper trapezius. Feels at her baseline level of health at this time. Blood pressure is not elevated. On room air. Family at bedside who helps give history. Had a similar episode 2 years ago. Heart cath in 21 with endothelial dysfunction but no significant coronary artery disease. Has been on aspirin since. [facility] Disclaimer: The information contained in this section may have been updated after the patient was seen, as this information can be updated by other users. Medical History Depression Diabetes Endothelial dysfunction of coronary artery Family history of coronary artery disease in father Hyperlipidemia Hypertension Hypothyroid Migraine Surgical History H/O cardiac radiofrequency ablation H/O thyroidectomy Previous section Family History Cancer Hypertension Social History Smoking Status: Never smoker alcohol intake: current counseling provided: none substance use type: denies use current occupational status: employed Travel in the last 8 weeks: None household members: family housing: house Meds Home Medications and Allergies Home Medications Medication Instructions Recorded Confirmed Type metformin 500 mg tablet,extended 500 mg PO DAILY Diabetes #23 tabs 09/06/19 03/26/23 History release 24 hr olmesartan 20 mg tablet 20 mg PO DAILY High blood pressure 09/06/19 03/26/23 History #30 tabs sertraline 100 mg tablet 100 mg PO HS Depression #30 tabs 09/06/19 03/26/23 History levothyroxine 100 mcg capsule 100 mcg PO DAILY hypothyroidism 01/27/21 03/26/23 History aspirin 81 mg tablet,delayed 81 mg PO DAILY cardiac 03/26/23 03/26/23 History release New Prescriptions to Start Prescriptions: Allergies Allergy/AdvReac Type Severity Reaction Status Date / Time Opioids - Morphine Analogues Allergy Intermediate Verified 12/21/20 13:02 Penicillins Allergy Intermediate Verified 12/21/20 13:02 Exam Data for Last 24 hours Vital signs and Labs for Last 24 Hours: Temp Pulse Resp BP Pulse Ox 98 F 80 21 90/65 L 96 03/26/23 12:43 03/26/23 15:30 03/26/23 15:30 03/26/23 15:30 03/26/23 15:30 Laboratory Results - last 24 hr 03/26/23 12:50: WBC 10.8, RBC 5.36, Hgb 14.8, Hct 47.2 H, MCV 88.1, MCH 27.7, MCHC 31.4 L, RDW 14.5, Plt Count 369, MPV 7.7, Neut % (Auto) 67.7, Lymph % (Auto) 23.8, [place] % (Auto) 5.8, Eos % (Auto) 2.0, Baso % (Auto) 0.7, Neut # (Auto) 7.3, Lymph # (Auto) 2.6, [place] # (Auto) 0.6, Eos # (Auto) 0.2, Baso # (Auto) 0.1, Sodium 139, Potassium 4.5, Chloride 108 H, Carbon Dioxide 22, Anion Gap 13.5, BUN 13, Creatinine 0.90, Estimated Creat Clear 129, Estimated GFR 67, Est GFR ( Amer) 82, Glucose 99, Calcium 8.6, Tropo
[2023-03-26 16:33] LABS: Coronavirus 19, PCR Not Detected (NotDetected); Influenza A, PCR Not Detected (NotDetected); Influenza B, PCR Not Detected (NotDetected)
--- NOTE | 2023-03-26 16:44 | PC.NURSE ---
House notified of admission, ACS with elevated troponin. Hospitalist accepted.
[2023-03-26 16:50] LABS: Hemoglobin A1C 5.4 % (4.0-6.0)
[2023-03-26 16:59] LABS: Triiodothryronine (T3) Uptake 32 % (23.5-40.5)
[2023-03-26 17:00] LABS: Free Thyroxine Index 2.6 ug/dL (5.93-13.13); T4 (Thyroxine) 8.2 ug/dl (5.53-11.0)
[2023-03-26 17:19] LABS: Thyroid Stimulating Hormone 2.78 uIU/mL (0.465-4.68)
--- NOTE | 2023-03-26 17:27 | PC.NURSE ---
Rounded on patient; nothing needed at this time. Updated on plan of care. Call gaines within reach
[2023-03-26 18:43] LABS: Troponin I 0.16 ng/ml (0.00-0.034)
[2023-03-26 21:11] LABS: POC Glucose,Bedside 94 (70-110)
[2023-03-26 21:25] LABS: Troponin I 0.17 ng/ml (0.00-0.034)
--- NOTE | 2023-03-26 21:56 | PC.NURSE ---
pt. states she is not a diabetic and does not want FSBS checked anymore. FSBS at this time is 94. hospitalist notified.
[2023-03-27] VITALS (7 sets, daily range): BP systolic 108–116; BP diastolic 52–78; PULSE 57–70; RESP 18; TEMP 36.4–36.9; O2SAT 97–98; BMI 37.8
--- NOTE | 2023-03-27 06:06 | ECG_ITS ---
APPROVED REPORT Exam: Resting ECG HR:65 bpm ECG Measurements Heart Rate 65 AXES OH 152 P 7 QRSd 89 QRS 39 QT 416 T 4 QTc 428 Conclusion SINUS RHYTHM LOW QRS VOLTAGE IN PRECORDIAL LEADS [QRS DEFLECTION < 1.0 mV IN CHEST LEADS] POSSIBLE ANTERIOR MYOCARDIAL INFARCTION , PROBABLY OLD [30 ms Q WAVE IN V3/V4, OR R < 0.2 mV IN V4] BORDERLINE ECG UNCONFIRMED REPORT Electronically signed by : Igor Man MD 03/27/2023 08:15:41
[2023-03-27 06:38] LABS: Alanine Aminotransferase 20 U/L (12-78); Albumin Level 3.6 g/dl (3.5-5.0); Albumin/Globulin Ratio 1.2 (1.1-1.8); Alkaline Phosphatase 67 U/L (38-126); Anion Gap 10.2 mEq/L (5-15); Aspartate Amino Transferase 28 U/L (14-36); Bilirubin,Total 0.6 mg/dl (0.2-1.3); Blood Urea Nitrogen 14 mg/dl (7-17); Calcium 8.4 mg/dl (8.4-10.2); Carbon Dioxide 26 mmol/L (22.0-30.0); Chloride 105 mmol/L (98-107); Chol/HDL Ratio 3.5 (1-3.5); Cholesterol 135 mg/dl (140-200); Creatinine Clearance Estimated 131 mL/min (50-200); Estimated Glomerular Filt Rate 67 ml/min (>60); GFR (African American) 82 ML/MIN (>60); Glucose 93 mg/dl (74-100); HDL Cholesterol 39 mg/dl (40-60); Magnesium 2.1 mg/dl (1.6-2.3); Potassium 4.2 mmoL/L (3.5-5.1); Sodium 137 mmol/L (136-145); Total Protein,Serum 6.6 g/dl (6.3-8.2); Triglycerides 183 mg/dl (30-150); VLDL Cholesterol 37 mg/dL (0-40)
[2023-03-27 06:48] LABS: Direct LDL Cholesterol 35.46 mg/dL (100-129)
[2023-03-27 06:55] LABS: Basophils # 0.1 K/mm3 (0-0.2); Basophils % 0.7 % (0.1-2.0); Eosinophils # 0.2 K/mm3 (0.0-0.4); Eosinophils % 1.6 % (0.1-12.0); Hematocrit 44.2 % (37.0-47.0); Hemoglobin 13.9 g/dL (12.2-16.2); Lymphocytes # 3.1 K/mm3 (0.7-4.5); Lymphocytes % 29.8 % (10-50); Mean Corpuscular HGB Conc 31.4 g/dL (31.8-35.4); Mean Corpuscular Hemoglobin 27.9 pg (27.0-31.2); Mean Platelet Volume 7.8 fl (7.4-10.4); Monocytes # 0.6 K/mm3 (0.1-1.0); Monocytes % 6.2 % (1.7-9.3); Neutrophils # 6.4 K/mm3 (1.8-7.8); Neutrophils % 61.7 % (37.0-80.0); Platelet Count 338 K/mm3 (142-424); Red Blood Count 4.97 M/mm3 (4.20-5.40); Red Cell Distribution Width 14.5 % (11.5-17.5); White Blood Count 10.4 K/mm3 (4.8-10.8)
--- NOTE | 2023-03-27 07:21 | HMH.PHAINT1 ---
Pharmacy Intervention Comments: Patient's home medications reviewed and verified with patient and external pharmacy. -[address], Pharm Student
--- NOTE | 2023-03-27 09:03 | EXP.CARD.CON ---
History of Present Illness History of Present Illness Consult date: 03/27/23 Requesting physician: Vinny Spear Chief complaint: neck/L arm pain Additional Medical History:: [facility] 01/2021: The left main artery Normal The left anterior descending artery Normal with slow ARELY II flow down the higher vessel consistent with endothelial dysfunction The circumflex artery Nondominant normal The right coronary artery Large dominant normal The LIZ ventriculogram reveals Slightly hyperdynamic at 70% The left ventricular end-diastolic pressure Mildly elevated 20 mmHg IMPRESSION Angiographically normal coronary arteries accompanied by ARELY II flow down the LAD consistent with significant endothelial dysfunction Hyperdynamic ventricle consistent with diastolic dysfunction Mildly elevated LVEDP also consistent with diastolic dysfunction PLAN 1. Medical management for SVT 2. Patient should be referred to electrophysiology for EP study with planned radiofrequency ablation given her type II myocardial infarction during SVT 3. Continue beta-blockers for SVT History of present illness: This is a 47-year-old white female who presented to the emergency department with complaints of neck and left arm pain. The patient states that yesterday she was blow drying her hair when she had sudden onset of left neck pain that radiated down into her left arm. She denies having any chest pain. The patient states that she just got really hot, diaphoretic and flushed feeling. She states that she also felt very dizzy and weak and may be a little bit nauseated. She denies any shortness of breath. The patient states that after the left arm pain and neck pain has been going on for a little bit she then started to have racing of the heart. She states that she continued to feel worse so she laid down on the bed. She states after about an hour and a half of symptoms she decided to come to the emergency department. Upon arrival to the emergency department the patient was found to have sinus tachycardia with a rate around 100 bpm. And her initial troponin was elevated at 0.05. Her troponin max was 0.17. Her symptoms were initially concerning for cervical radiculopathy but given her elevated troponin the patient was admitted to the hospital for a non-STEMI. Of note, the patient had similar presentation back in 2020. However at that time she was found to have an SVT with a heart rate around 200 bpm. The patient had an elevated troponin then and was taken to the [facility] and was found to have normal coronary arteries with endothelial dysfunction noted to the LAD. The patient was sent to Dr. Ov[place]o and had an SVT ablation. She states since that time she has not had any racing of the heart or chest pain until yesterday. She has not been on a beta-grazyna since her ablation. This morning she denies any chest pain or pressure. She denies any shortness of breath or edema. She denies any fever, chills, nausea, vomiting, diarrhea, PND or orthopnea. Her left shoulder pain is reproducible, still concerning for some cervical radiculopathy. [facility] Disclaimer: The information contained in this section may have been updated after the patient was seen, as this information can be updated by other users. Medical History (Updated 03/27/23 @ 09:11 by Nata Sandoval APRN) Depression Elevated troponin Endothelial dysfunction of coronary artery Family history of coronary artery disease in father History of paroxysmal supraventricular tachycardia Hyperlipidemia Hypertension Hypothyroid Migraine Neck pain PCOS (polycystic ovarian syndrome) Sinus tachycardia Supraventricular tachycardia Surgical History H/O cardiac radiofrequency ablation H/O thyroidectomy Previous section Family History Cancer Hypertension Social History [place]
--- NOTE | 2023-03-27 14:14 | EXP.DC.SUM ---
General Admission date:: 03/26/23 Discharge date: 03/27/23 HPI HPI HPI: is a 47-year-old female who was blow drying her hair earlier today and developed onset of neck pain and chest pain. Pain radiated either to her from her left neck and down her arm and into her chest. Developed sensation of feeling flushed and sweaty. Brady dizzy and weak. Rested at home for about an hour and a half before coming to the ER with no improvement in her symptoms. Denies any shortness of breath, nausea, vomiting, diarrhea. No ian syncope. Initial eval concerning for radiculopathy of the C-spine as pain was reproducible on exam. EKG unremarkable. Troponins however elevated and continued to increase from 0 to 3 hours. Given this finding, cardiology was contacted and recommended admission for medical management at this time. They will see her in the morning. ER consulted medicine for admission. On arrival to the floor, patient denies any further chest pain. Does have some tenderness in her left upper trapezius. Feels at her baseline level of health at this time. Blood pressure is not elevated. On room air. Family at bedside who helps give history. Had a similar episode 2 years ago. Heart cath in 21 with endothelial dysfunction but no significant coronary artery disease. Has been on aspirin since. Hospital Course Hospital Course Hospital Course: Pleasant 47-year-old female who presents with chest pain, feeling flushed, and left neck pain. Found to have elevated troponin. Admitted for NSTEMI. Started on aspirin, Plavix in the ER. Cardiology was consulted, noninvasive work-up performed. Patient medically managed. No significant coronary artery disease on coronary CT. Stable for discharge home with outpatient follow-up. Problems addressed as follows: NSTEMI Chest pain -EKG personally reviewed, no ischemic changes or ST elevations. Troponin elevated on admission at 0.05, increased on serial troponins to 0.16 at 6 hours. Cardiology was consulted. Recommended CT angiogram to evaluate for coronary calcium. Patient had a calcium score of 0. No significant findings on imaging. In light of previous cath 2 years ago showing no stenoses, positive for endothelial dysfunction, patient's medications were adjusted. Continue aspirin 81 mg daily. Initiated on bisoprolol 10 mg daily. Cholesterol well controlled. No indication for Plavix or statin at this time. Recommend stopping home ARB. Stable for discharge home with close follow-up with cardiology. Hypothyroidism -TSH appropriate at 2.78. Continue home levothyroxine 100mcg daily Diabetes -A1c normal at 5.4. No diabetes. On metformin for PCOS. Continue at this time. Depression -Continue home Zoloft Stable for discharge home. Extensive time counseling on patient's symptoms, likely etiologies, work-up plan and further treatment as an outpatient. Stable for discharge home. Follow with cardiology. 30-minute discharge Exam Data for Last 24 hours Vital signs and Labs for Last 24 Hours: Temp Pulse Resp BP Pulse Ox 97.6 F 60 18 108/52 L 97 03/27/23 11:44 03/27/23 12:00 03/27/23 11:44 03/27/23 11:44 03/27/23 11:44 Laboratory Results - last 24 hr 03/26/23 12:50: Hemoglobin A1c 5.4, TSH 2.78, Free T4 Index 2.6 L, Thyroxine (T4) 8.2, T3 Uptake 32 03/26/23 15:38: Troponin I 0.12 H 03/26/23 16:28: SARS-CoV-2 (PCR) Not detected, Influenza A Untype (PCR) Not detected, Influenza Type B (PCR) Not detected 03/26/23 18:00: Troponin I 0.16 H 03/26/23 21:00: POC Glucose 94, Troponin I 0.17 H 03/27/23 06:02: WBC 10.4, RBC 4.97, Hgb 13.9, Hct 44.2, MCV 89.0, MCH 27.9, MCHC 31.4 L, RDW 14.5, Plt Count 338, MPV 7.8, Neut % (Auto) 61.7, Lymph % (Auto) 29.8, [place] % (Auto) 6.2, Eos % (Auto) 1.6, Baso % (Auto) 0.7, Neut # (Auto) 6.4, Lymph # (Auto) 3.1, [place] # (Auto) 0.6, Eos # (Auto) 0.2, Baso # (Auto) 0.1, Sodium 137, Potassium 4.2, Chloride 105, Carbon Dioxide 26, Anion Gap 10.2, BUN 14, Cr
--- NOTE | 2023-03-28 11:08 | CARE MANAGER ---
Contacted patient related to hospital discharge. She picked up her new medication. She is aware of follow up appointment with PCP and will schedule with cardiology tomorrow. Denies any issues or concerns. RIGOBERTO Perez
== END 2023-03-27 16:51 | disposition home or self-care (01) ==
LOC: ER 16:33 → 2ND 17:33
PROVIDERS: Admitting Provider Internal Medicine Adolescent Medicine; Emergency Provider Emergency Medicine; PCP Nurse Practitioner Family; Visit Provider Internal Medicine Adolescent Medicine
DX: E11.9 Type 2 diabetes mellitus without complications; E78.5 Hyperlipidemia, unspecified; I10 Essential (primary) hypertension; E03.9 Hypothyroidism, unspecified; I25.10 Atherosclerotic heart disease of native coronary artery without angina pectoris; Z79.899 Other long term (current) drug therapy; Z82.49 Family history of ischemic heart disease and other diseases of the circulatory system; E28.2 Polycystic ovarian syndrome; R00.0 Tachycardia, unspecified; M54.2 Cervicalgia; M79.602 Pain in left arm; R77.8 Other specified abnormalities of plasma proteins
CPT/HCPCS: 36415; 71045; 75574; 80048; 80053; 80061; 82962; 83036; 83735; 84436; 84443; 84479; 84484; 85025; 87635; 87636; 93005; 93270; 93306; 99285; C9803; G0378; Q9967; U0003; U0005